=== PATIENT | male | born 1945 | race African-American/Black ===

== ENCOUNTER 2025-07-31 17:00 | Inpatient (IN) | payer BC, MEDICARE ==
[~2025-07-31] VITALS: Ht 177.8 cm; Wt 50.3 kg
[~2025-07-31 17:00] MED LIST: AMI2 MT; DEX4 MT; FURO20TA4 MT; LEVE-20 MT; LEVO-65 MT; MEGE400O40 MT; OMEP40CA20 MT; TRAM50TA3 MT
[2025-07-31 18:14] LABS: HEMATOCRIT. 30.0 % (42.0-52.0); HEMOGLOBIN. 9.3 g/dL (14.0-18.0); MEAN PLATELET VOLUME 9.4 fl (7.4-10.4); PLATELET 348 x1000/uL (130-400); RED BLOOD CELL COUNT 3.40 mill/uL (4.7-6.1); RED CELL DISTRIBUTION WIDTH 20.8 % (11.6-14.6)
[2025-07-31 18:26] LABS: INR 1.2
[2025-07-31 18:29] LABS: CREATININE 1.9 mg/dL (0.6-1.3); PROTEIN TOTAL 7.1 g/dL (6.0-8.3); UREA NITROGEN BLOOD 27 mg/dL (9-23)
[2025-07-31 18:31] LABS: ASPARTATE AMINOTRANSFERASE > 1000 IU/L (<34); BILIRUBIN DIRECT 0.2 mg/dL (<=3.0); BILIRUBIN TOTAL 0.4 mg/dL (0.1-1.0)
[2025-07-31 18:32] LABS: LYMPHOCYTES % MANUAL 3.0 % (20.0-50.0); MONOCYTES % MANUAL 12.0 % (2.0-8.0); NEUTROPHILS % MANUAL 85.0 % (45.0-75.0); NUCLEATED RED BLOOD CELLS 3 /100 WBC
[2025-07-31 18:33] LABS: PLATELET ESTIMATE NORMAL
[2025-07-31 18:35] LABS: TROPONIN I HIGH SENSITIVITY 72 ng/L (3.0-53)
[2025-07-31] MEDS ORDERED: ALBUTEROL (0.5%) 2.5MG/0.5ML NEB HHN ONE (18:45)
[2025-07-31] MEDS: FUROSEMIDE 40MG/4ML VIAL IV ONE (18:57)
[2025-07-31] MEDS: DEXTROSE 50% WATER 50ML SYRINGE IV ONE (18:57)
[2025-07-31] MEDS: SODIUM ZIRCONIUM CYCLOSILICATE 10GM/PACKET PO ONE (18:57)
[2025-07-31] MEDS: INSULIN REGULAR (HUMULIN R) 1000UNITS/10ML VIAL IV ONE (18:57)
[2025-07-31] MEDS: CALCIUM GLUCONATE 100MG/ML 10ML VIAL IV ONE (19:53)
[2025-07-31] MEDS: ALBUTEROL (0.5%) 2.5MG/0.5ML NEB HHN NR (20:35)
[2025-07-31 20:40] VITALS: PULSE 88; RESP 20; O2SAT 99
[2025-07-31] MEDS ORDERED: DOCUSATE SODIUM 100MG CAPSULE PO PRN (21:00)
[2025-07-31] MEDS ORDERED: ACETAMINOPHEN 325MG TABLET PO PRN ×2 (21:00)
[2025-07-31] MEDS ORDERED: IPRATROPIUM/ALBUTEROL 0.5-3(2.5)MG/3ML NEB HHN PRN (21:00)
[2025-07-31] MEDS ORDERED: CLONIDINE 0.1MG TABLET PO PRN (21:00)
[2025-07-31] MEDS ORDERED: ONDANSETRON HCL 4MG/2ML INJ IV PRN (21:00)
[2025-07-31 21:34] LABS: BG BASE EXCESS -7.3 mmol/L (-2.0-3.0); BG CARBOXYHEMOGLOBIN 0.7 % (0.5-1.5); BG DEOXYHEMOGLOBIN 4.2 % (0.0-5.0); BG FRACTION INSPIRED OXYGEN 21; BG HCO3 ACT 16.3 mmol/L (21.0-28.0); BG METHEMOGLOBIN 0.3 % (0.5-1.5); BG OXYGEN SATURATION 95.8 % (94.0-98.0); BG OXYHEMOGLOBIN 94.8 % (94.0-98.0); BG PCO2 26.8 mmHg (35.0-48.0); BG PH 7.403 (7.350-7.450); BG PO2 88.7 mmHg (83.0-108.0); BG SAMPLE SITE RIGHT RADIAL; BG TOTAL HEMOGLOBIN 9.1 g/dL (13.5-17.5); BG VENT MODE ROOM AIR
[2025-07-31] MEDS ORDERED: TERB250T88 MT (22:16)
[2025-07-31] MEDS ORDERED: METO25TA6 MT (22:18)
[2025-07-31] MEDS ORDERED: MEX150 MT (22:19)
[2025-07-31] MEDS ORDERED: IOHEXOL-350 100 ML BOTTLE ONE (22:45)
[2025-07-31 22:58] VITALS: BP 128/68; PULSE 80; RESP 20; TEMP 36.8; O2SAT 95
[2025-07-31 23:26] VITALS: BP 127/68; PULSE 70; RESP 18; TEMP 36.8628
[2025-08-01] VITALS (7 sets, daily range): BP systolic 100–122; BP diastolic 56–75; PULSE 78–90; RESP 18–20; TEMP 36.1–37; O2SAT 96–99
[2025-08-01 00:33] LABS: *AMPHETAMINES SCREEN URINE NEGATIVE (NEGATIVE)
[2025-08-01 00:34] LABS: *BARBITURATES SCREEN URINE NEGATIVE (NEGATIVE); *BENZODIAZEPINES SCREEN URINE NEGATIVE (NEGATIVE); *COCAINE SCREEN URINE NEGATIVE (NEGATIVE); CANNABINOID URINE SCREEN NEGATIVE (NEGATIVE); ECSTASY MDMA SCREEN URINE NEGATIVE (NEGATIVE); METHADONE URINE SCREEN NEGATIVE (NEGATIVE); OPIATES URINE SCREEN NEGATIVE (NEGATIVE); PHENCYCLIDINE URINE SCREEN NEGATIVE (NEGATIVE)
[2025-08-01 06:10] LABS: BASOPHILS % 0.2 % (0.0-2.0); EOSINOPHILS % 0.3 % (0.0-5.0); HEMATOCRIT. 27.0 % (42.0-52.0); HEMOGLOBIN. 8.9 g/dL (14.0-18.0); LYMPHOCYTES % 7.2 % (20.0-50.0); MEAN PLATELET VOLUME 9.7 fl (7.4-10.4); MONOCYTES % 6.0 % (2.0-8.0); NEUTROPHILS % 86.3 % (40.0-76.0); PLATELET 257 x1000/uL (130-400); RED BLOOD CELL COUNT 3.13 mill/uL (4.7-6.1); RED CELL DISTRIBUTION WIDTH 20.0 % (11.6-14.6)
[2025-08-01 06:24] LABS: CREATININE 1.9 mg/dL (0.6-1.3); PROTEIN TOTAL 6.2 g/dL (6.0-8.3); UREA NITROGEN BLOOD 35 mg/dL (9-23)
[2025-08-01 06:26] LABS: ASPARTATE AMINOTRANSFERASE > 1000 IU/L (<34); BILIRUBIN TOTAL 0.3 mg/dL (0.1-1.0)
[2025-08-01 06:35] LABS: TROPONIN I HIGH SENSITIVITY 78 ng/L (3.0-53)
[2025-08-01 06:56] LABS: HEPATITIS A AB IGM NEGATIVE (Negative)
[2025-08-01 06:57] LABS: HEPATITIS B CORE AB IGM NEGATIVE (Negative); HEPATITIS C AB NON REACTIVE (Neg) (Negative)
[2025-08-01] MEDS: FUROSEMIDE 40MG/4ML VIAL IVP SCH (09:48)
[2025-08-01] MEDS ORDERED: MEXILETINE HCL 150MG CAPSULE PO SCH (13:00)
[2025-08-01] MEDS: PANTOPRAZOLE 40MG DR TABLET PO SCH (13:20)
[2025-08-01] MEDS: ENOXAPARIN 30MG/0.3ML SYR SUBCUT SCH (13:21)
[2025-08-01 14:46] LABS: CLARITY URINE CLEAR (CLEAR); COLOR URINE YELLOW (YELLOW); GLUCOSE URINE NEGATIVE (NEGATIVE); KETONES URINE NEGATIVE (NEGATIVE); LEUKOCYTE ESTERASE URINE NEGATIVE (NEGATIVE); NITRITE URINE NEGATIVE (NEGATIVE); OCCULT BLOOD URINE 1+ (NEGATIVE); PH URINE 5.0 (4.5-8.0); PROTEIN URINE TRACE (NEGATIVE); SPECIFIC GRAVITY URINE 1.015 (1.005-1.030); UROBILINOGEN URINE 0.2 E.U./dL (0.2-1.0)
[2025-08-01 15:00] LABS: SQUAMOUS EPITHELIAL CELL URINE FEW /lpf (RARE/1+)
[2025-08-01 15:01] LABS: BACTERIA URINE NONE SEEN; FINE GRANULAR CASTS URINE 0-5 /lpf; HYALINE CASTS URINE 0-5 /lpf; RBC URINE 0-2 /hpf (0-2); WBC URINE 0-2 /hpf (0-2)
[2025-08-01] MEDS: METOPROLOL TARTRATE 25MG TABLET PO SCH (22:02)
[2025-08-01] MEDS: LEVETIRACETAM 500MG/5ML CUP PO SCH (22:03)
[2025-08-02] VITALS: BP 107/84; PULSE 80; RESP 18; TEMP 36.4; O2SAT 95
[2025-08-02 04:00] VITALS: BP 94/61; PULSE 83; RESP 18; TEMP 36.3; O2SAT 96
[2025-08-02 07:28] LABS: CREATININE 1.8 mg/dL (0.6-1.3)
[2025-08-02 07:29] LABS: PROTEIN TOTAL 6.2 g/dL (6.0-8.3); UREA NITROGEN BLOOD 26 mg/dL (9-23)
[2025-08-02 07:30] LABS: ASPARTATE AMINOTRANSFERASE 878 IU/L (<34)
[2025-08-02 07:31] LABS: BILIRUBIN TOTAL 0.5 mg/dL (0.1-1.0)
[2025-08-02 08:00] VITALS: BP 101/58; PULSE 73; RESP 20; TEMP 36.2; O2SAT 98
[2025-08-02 12:00] VITALS: BP 112/62; PULSE 69; RESP 19; TEMP 36.3; O2SAT 98
[2025-08-02] MEDS: METHYLPREDNISOLONE SOD SUCC 40MG/ML (ACT-O-VIAL) IV SCH (14:57)
[2025-08-02] MEDS: FERROUS SULFATE 325MG TABLET PO SCH (15:03)
[2025-08-02] MEDS: ASCORBIC ACID 500 MG TABLET PO SCH (15:03)
[2025-08-02] MEDS: DEXTROSE 5% WATER 1,000 ML IV SCH (15:05)
[2025-08-02 16:00] VITALS: BP 114/65; PULSE 70; RESP 18; TEMP 35.8; O2SAT 98
[2025-08-02] MEDS ORDERED: IPRATROPIUM/ALBUTEROL 0.5-3(2.5)MG/3ML NEB HHN SCH (18:00)
[2025-08-02 20:00] VITALS: BP 94/60; PULSE 70; RESP 16; TEMP 36.5; O2SAT 100
[2025-08-02 21:11] LABS: BASOPHILS % 0.3 % (0.0-2.0); EOSINOPHILS % 2.5 % (0.0-5.0); HEMATOCRIT. 32.2 % (42.0-52.0); HEMOGLOBIN. 10.3 g/dL (14.0-18.0); LYMPHOCYTES % 7.2 % (20.0-50.0); MEAN PLATELET VOLUME 10.3 fl (7.4-10.4); MONOCYTES % 4.2 % (2.0-8.0); NEUTROPHILS % 85.8 % (40.0-76.0); PLATELET 256 x1000/uL (130-400); RED BLOOD CELL COUNT 3.70 mill/uL (4.7-6.1); RED CELL DISTRIBUTION WIDTH 21.4 % (11.6-14.6)
[2025-08-02 21:12] LABS: HEMATOCRIT. 32.2 % (42.0-52.0); HEMOGLOBIN. 10.3 g/dL (14.0-18.0); MEAN PLATELET VOLUME 10.3 fl (7.4-10.4); PLATELET 262 x1000/uL (130-400); RED BLOOD CELL COUNT 3.66 mill/uL (4.7-6.1); RED CELL DISTRIBUTION WIDTH 21.9 % (11.6-14.6)
[2025-08-02 21:30] LABS: FOLIC ACID (FOLATE) SERUM 10.04 ng/mL (>5.38)
[2025-08-02 21:39] LABS: VITAMIN B12 SERUM > 2000 pg/mL (211-911)
[2025-08-02 23:28] LABS: EOSINOPHILS % MANUAL 4.0 % (0.0-5.0); LYMPHOCYTES % MANUAL 9.0 % (20.0-50.0); MONOCYTES % MANUAL 3.0 % (2.0-8.0); NEUTROPHILS % MANUAL 84.0 % (45.0-75.0); PLATELET ESTIMATE NORMAL
[2025-08-03] VITALS: BP 106/62; PULSE 69; RESP 18; TEMP 36.6; O2SAT 98
[2025-08-03 04:00] VITALS: BP 109/61; PULSE 70; RESP 18; TEMP 36.5; O2SAT 100
[2025-08-03 08:00] VITALS: BP 113/64; PULSE 80; RESP 18; TEMP 35.8; O2SAT 99
[2025-08-03 12:00] VITALS: BP 101/52; PULSE 74; RESP 18; TEMP 36; O2SAT 98
[2025-08-03 16:00] VITALS: BP 101/56; PULSE 71; RESP 18; TEMP 36.2; O2SAT 98
[2025-08-03 20:00] VITALS: BP 110/62; PULSE 55; RESP 20; TEMP 36.7; O2SAT 98
[2025-08-04] VITALS: BP 105/64; PULSE 72; RESP 20; TEMP 36.1; O2SAT 98
[2025-08-04 04:00] VITALS: BP 120/64; PULSE 64; RESP 18; TEMP 36.1; O2SAT 98
[2025-08-04 08:00] VITALS: BP 116/63; PULSE 71; RESP 18; TEMP 36.5; O2SAT 97; O2SAT 98
[2025-08-04 08:39] LABS: HEMATOCRIT. 32.7 % (42.0-52.0); HEMOGLOBIN. 10.2 g/dL (14.0-18.0); MEAN PLATELET VOLUME 10.1 fl (7.4-10.4); PLATELET 268 x1000/uL (130-400); RED BLOOD CELL COUNT 3.63 mill/uL (4.7-6.1); RED CELL DISTRIBUTION WIDTH 21.6 % (11.6-14.6)
[2025-08-04 08:44] LABS: CREATININE 1.6 mg/dL (0.6-1.3); UREA NITROGEN BLOOD 30 mg/dL (9-23)
[2025-08-04 08:45] LABS: PROTEIN TOTAL 6.7 g/dL (6.0-8.3)
[2025-08-04 08:46] LABS: ASPARTATE AMINOTRANSFERASE 121 IU/L (<34); BILIRUBIN TOTAL 0.4 mg/dL (0.1-1.0)
[2025-08-04 12:16] VITALS: BP 102/61; PULSE 68; RESP 18; TEMP 36.5; O2SAT 97
[2025-08-04] MEDS: DOXYCYCLINE 100MG/100ML 100 ML IV SCH (13:54)
[2025-08-04] MEDS ORDERED: DOXY-244 MT (15:46)
[2025-08-04 16:00] VITALS: BP 101/70; PULSE 63; RESP 18; TEMP 37.1; O2SAT 98
[2025-08-05 22:22] LABS: LYMPHOCYTES % MANUAL 5.0 % (20.0-50.0); MONOCYTES % MANUAL 1.0 % (2.0-8.0); NEUTROPHILS % MANUAL 94.0 % (45.0-75.0); PLATELET ESTIMATE NORMAL
== END 2025-08-04 17:35 | disposition home or self-care (01) | DRG 280 ==
LOC: ER 17:00 → EDBEDREQTM 20:13 → EDBEDREQ 20:13 → ENRESERV 21:19 → 8WST 22:39
PROVIDERS: ADMIT Family Medicine Adult Medicine; ATTEND Family Medicine Adult Medicine
DX: I13.0 Hypertensive heart and chronic kidney disease with heart failure and stage 1 through stage 4 chronic kidney disease, or unspecified chronic kidney disease (principal); I50.23 Acute on chronic systolic (congestive) heart failure; I21.4 Non-ST elevation (NSTEMI) myocardial infarction; J96.01 Acute respiratory failure with hypoxia; C79.51 Secondary malignant neoplasm of bone; R64 Cachexia; N17.9 Acute kidney failure, unspecified; E11.22 Type 2 diabetes mellitus with diabetic chronic kidney disease; N18.9 Chronic kidney disease, unspecified; Z95.2 Presence of prosthetic heart valve; J44.89 Other specified chronic obstructive pulmonary disease; E87.20 Acidosis, unspecified; Z68.1 Body mass index [BMI] 19.9 or less, adult; D72.821 Monocytosis (symptomatic); E87.5 Hyperkalemia; R74.01 Elevation of levels of liver transaminase levels; I25.10 Atherosclerotic heart disease of native coronary artery without angina pectoris; Z87.891 Personal history of nicotine dependence; Z88.0 Allergy status to penicillin; Z88.6 Allergy status to analgesic agent; Z88.5 Allergy status to narcotic agent; Z85.118 Personal history of other malignant neoplasm of bronchus and lung; Z92.21 Personal history of antineoplastic chemotherapy; Z92.3 Personal history of irradiation; Z90.49 Acquired absence of other specified parts of digestive tract; E61.1 Iron deficiency; Z95.810 Presence of automatic (implantable) cardiac defibrillator; E78.00 Pure hypercholesterolemia, unspecified; Z85.841 Personal history of malignant neoplasm of brain
CPT/HCPCS: 36415; 36600; 71045; 71275; 76700; 80048; 80053; 80076; 80305; 80307; 81003; 82375; 82550; 82607; 82728; 82746; 82805; 82962; 82977; 83540; 83550; 83605; 83735; 83880; 84132; 84145; 84484; 85025; 85379; 86705; 86709; 87340; 93005; 94070; 94640; 99291; J0612; J1650; J1815; J1938; J2919; J3490; J7070; Q9967